=== PATIENT | female | born 1995 | race African-American/Black ===

== ENCOUNTER 2021-01-02 21:46 | Emergency (ER) | payer OTHER, SELFPAY ==
[2021-01-02 21:55] VITALS: BP 184/116; PULSE 91; RESP 18; TEMP 36.9; O2SAT 100
[2021-01-02 22:45] LABS: Add Urine Microscopic? YES; Appearance Urine Cloudy (Clear); Bacteria Urine Trace /hpf; Bilirubin Urine Negative (Negative); Blood Urine Negative (Negative); Color Urine Yellow (Yellow); Glucose Urine UA Negative (Negative); Ketones Urine Negative (Negative); Leukocyte Esterase Ur Negative LEU/UL (Negative); Mucus Urine Rare /lpf; Nitrate Urine Negative (Negative); Protein Urine 1+ mg/dL (Negative); Specific Grav Ur 1.024 (1.001-1.035); Squamous Epithelial Cell Urine Few /hpf (Few); Urobilinogen Urine Negative mg/dL (<2.0); WBC Urine 0-3 /hpf
--- NOTE | 2021-01-02 22:51 | ED.ABDPAIN ---
HPI - Abdominal Pain General Chief Complaint: Abdominal Pain Stated Complaint: abd pain, flank pain Time Seen by Provider: 01/02/21 22:07 Source: patient History of Present Illness HPI narrative: Patient presents with lower abdominal pain cloudy urine and back pain. Patient reports that symptoms for the past couple days. She is concerned for an STD. She reports she had unprotected intercourse with a friend and a girlfriend. Since then she has had some irritation. Ports none of her partners tested positive but she just wanted to be evaluated. She denies any pain with urination or increased urinary frequency she denies any nausea vomiting or fevers Related Data Allergies Allergy/AdvReac Type Severity Reaction Status Date / Time No Known Allergies Allergy Unverified 11/09/18 09:30 Review of Systems Review of Systems: CONSTITUTIONAL: Denies fever, chills, or sweats. EYES: Denies visual changes, redness, or discharge. ENT: Denies rhinorrhea, congestion, sore throat, or otalgia. CARDIOVASCULAR: Denies chest pain, palpitations, or edema. RESPIRATORY: Denies cough or dyspnea. GASTROINTESTINAL: Denies abdominal pain, nausea, vomiting, or diarrhea. GENITOURINARY: Denies dysuria or hematuria. SKIN: Denies rash or itching. MUSCULOSKELETAL: Denies joint pain, or myalgia. NEUROLOGIC: Denies headache, numbness, dizziness, or weakness. PSYCHIATRIC: Denies anxiety or depression. All systems reviewed & are unremarkable except as noted in HPI and below PMFSH Past Medical History Medical History (Updated 01/02/21 @ 23:53 by Cisco Hardy MD) Single kidney Social History Social History (Updated 01/02/21 @ 23:50 by Cisco Hardy MD) Substance use type: does not use Exam Narrative: GENERAL: Well-appearing, well-nourished, and in no acute distress. HEAD: Normocephalic, atraumatic. EYES: PERRLA and EOMI. ENT: Nares clear, no rhinorrhea or epistaxis. Mucous membranes moist. NECK: Supple. No masses. No JVD ABDOMEN: Minimal tenderness with deep palpation in the suprapubic area soft, nondistended, normal active bowel sounds : Eyeglass Frame Truer present throughout the entire exam. There are no external lesions edema or erythema no lymphadenopathy. Speculum exam with scant white discharge no apparent drainage from the cervical os mild bloody discharge. Swabs obtained. EXTREMITIES: Normal range of motion. No edema. SKIN: Warm, dry, no rash. NEURO: No focal deficits. Alert and oriented x3. PSYCH: Normal mood and affect. Course Reevaluation(s) Reevaluation #1: Patient resting comfortably results reviewed with patient she is comfortable with outpatient plan. Patient is offered empiric therapy for concern for STI patient wanted to wait on her results prior to starting treatment. Date: 01/02/21 Time: 23:51 Vital Signs Vital signs: Vital Signs Temperature 36.9 C 01/02/21 21:55 Pulse Rate 91 01/02/21 21:55 Respiratory Rate 18 01/02/21 21:55 Blood Pressure 184/116 H 01/02/21 21:55 Pulse Oximetry 100 01/02/21 21:55 Temperature 36.9 C 01/02/21 21:55 Pulse Rate 84 01/03/21 00:22 Respiratory Rate 18 01/03/21 00:22 Blood Pressure 150/103 H 01/03/21 00:22 Pulse Oximetry 100 01/03/21 00:22 MDM - Abdominal Pain MDM Narrative Medical decision making narrative: H&P as above, vss, pt looks clinically well, exam reassuring, labs pending, additional labs/img considered, symptomatic relief available as needed, on reevaluation pt continues to looks clinically well. Symptoms may represent STI BV or yeast however labs are pending, dns PID, tubo-ovarian abscess, UTI, pyelonephritis, severe sepsis. plan to tx/monitor as op w/ pcm f/u findings/plan discussed with pt, pt agree/comfortable with plan, return precautions given Lab Data Labs: Lab Results 01/02/21 01/02/21 01/02/21 Range/Units 22:33 23:17 23:17 Urine Color Yellow (Yellow) Urine Appearance Cloudy H (Clear) Urine pH 6.0 (5.0-9.0) Ur S
[2021-01-03 00:22] VITALS: BP 150/103; PULSE 84; RESP 18; O2SAT 100
== END 2021-01-03 00:23 | disposition home or self-care (01) ==
PROVIDERS: Emergency Provider Emergency Medicine
DX: R10.2 Pelvic and perineal pain (principal); R31.29 Other microscopic hematuria; M54.9 Dorsalgia, unspecified
CPT/HCPCS: 81001; 87070; 87491; 87591; 87661; 87808; 99284

== ENCOUNTER 2022-10-28 15:41 | Emergency (ER) | payer SELFPAY ==
[2022-10-28 15:43] VITALS: BP 187/113; PULSE 108; RESP 18; TEMP 37; O2SAT 97
[2022-10-28] MEDS: oxyCODONE/ACETAMINOPHEN (*CRX) 5-325 MG TABLET 1 TABLET PO (17:19)
--- NOTE | 2022-10-28 17:19 | ED.DENTAL ---
HPI - Dental/Oral General Chief complaint: Dental/Oral Stated complaint: dental pain Time Seen by Provider: 10/28/22 16:10 History of Present Illness HPI Narrative: Patient is a 27-year-old female who presents to the ER with reports of dental pain. Beginning over the last day. Lower jaw bilaterally. Has a follow-up dental appointment in 2 weeks. No fevers chills or sweats. No difficulty breathing or swallowing. Pain is worse with eating drinking. Related Data Allergies Allergy/AdvReac Type Severity Reaction Status Date / Time No Known Allergies Allergy Unverified 11/09/18 09:30 Review of Systems Constitutional: Constitutional: Reports no additional constitutional complaints ENT: Denies nasal congestion and Denies sore throat Comments: Positive dental pain Respiratory: Respiratory: Reports no additional respiratory complaints Gastrointestinal: Gastrointestinal: Reports no additional gastrointestinal complaints PMFSH Past Medical History Medical History (Updated 10/28/22 @ 17:20 by Cruz Rocha MD) Single kidney Social History Social History (Updated 01/02/21 @ 23:50 by Cisco HardyMD) Substance use type: does not use Exam Narrative: GENERAL: Crying, well-nourished. HEAD: Normocephalic, atraumatic. ENT: Fractures of tooth #32 and 17 without fluctuant abscess. No facial swelling. Mucous membranes moist. NECK: Supple. NEURO: Alert and oriented x3. PSYCH: Normal mood and affect. Course Vital Signs Vital signs: Vital Signs Temperature 98.6 F 10/28/22 15:43 Pulse Rate 108 H 10/28/22 15:43 Respiratory Rate 18 10/28/22 15:43 Blood Pressure 187/113 H 10/28/22 15:43 Pulse Oximetry 97 10/28/22 15:43 Temperature 98.6 F 10/28/22 15:43 Pulse Rate 108 H 10/28/22 15:43 Respiratory Rate 18 10/28/22 15:43 Blood Pressure 187/113 H 10/28/22 15:43 Pulse Oximetry 97 10/28/22 15:43 MDM - Dental/Oral MDM Narrative Medical decision making narrative: -Presentation: 27-year-old female with dental pain -DDX includes but is not limited to: Dental fracture, dental abscess, pharyngitis -Co-morbidities complicating care: Obesity -Social determinants of health: -External Chart Review: -Hx from independent Sources: Patient -Independent interpretation of studies: -Discussion of Management/Consultants: none -Dx tests considered but not ordered: none -Procedures: none -Interventions: Percocet 5/325 mg. -Shared decision making / Disposition: Discussed outpatient treatment patient verbalized understanding. -RX: Augmentin, [place] Discharge Plan Discharge Clinical Impression: Toothache Patient Disposition: Home, Self-Care Condition: Stable Instructions: Antibiotic Form, Toothache (ED) Additional Instructions: You have some dental fractures/decay with pain. Is felt this represents infection. You are being started on an oral antibiotic as well as an oral pain medication. Follow-up with a dentist for definitive treatment. You may benefit from the purchase of dental wax to cover the open areas of your tooth to prevent irritation of the nerve root. Return the ER if you cannot breathe, cannot swallow, we have additional concerns. Prescriptions: New hydrocodone-acetaminophen 5-325 mg tablet 1 tablet PO Q6H PRN (Reason: pain) Qty: 12 0RF amoxicillin-pot clavulanate 875-125 mg tablet 1 tablet PO Q12H Qty: 14 0RF Follow-up/Referrals: PHYSICIAN,CUSTOMS INVESTIGATOR [Primary Care Provider] - Stand Alone Forms: Work/School Release IP
== END 2022-10-28 17:41 | disposition home or self-care (01) ==
PROVIDERS: Emergency Provider Emergency Medicine
DX: K08.89 Other specified disorders of teeth and supporting structures (principal)
CPT/HCPCS: 99283; A9270